=== PATIENT | male | born 1935 | race Two or more races ===

== ENCOUNTER 2022-06-15 06:42 | Day surgery (SDC) | payer MEDICARE ==
[2022-06-15] VITALS (9 sets, daily range): BP systolic 128–165; BP diastolic 57–91
[~2022-06-15] VITALS: Ht 170.2 cm; Wt 104.3 kg
[~2022-06-15 06:42] MED LIST: RIVA20TA PO
[2022-06-15] MEDS ORDERED: HEPARIN SODIUM (PORCINE) 5000 UNITS/ML 1ML VIAL ONE (07:41)
[2022-06-15] MEDS ORDERED: MIDAZOLAM HCL 2MG/2ML 2ml VIAL (1mg/ml) ONE (07:41)
[2022-06-15] MEDS ORDERED: VERAPAMIL 2.5MG/ML INJ 2ML VIAL IV ONE (07:41)
[2022-06-15] MEDS ORDERED: SODIUM CHL 0.9% 0 ML ONE (07:42)
[2022-06-15] MEDS ORDERED: fentaNYL CITRATE 100 MCG/2 ML VL ONE (07:42)
[2022-06-15] MEDS ORDERED: ANGIOMAX 250 MG VIAL IV ONE (07:42)
[2022-06-15] MEDS ORDERED: IODIXANOL 320MG/ML 100ML BTL IV ONE ×3 (07:42→08:28)
[2022-06-15] MEDS ORDERED: OXYB5TAB61 PO (10:15)
[2022-06-15] MEDS ORDERED: POTA1TAB61 PO (10:16)
[2022-06-15] MEDS ORDERED: BUME0.5T4 PO (10:16)
== END 2022-06-15 11:15 | disposition home or self-care (01) ==
LOC: CATH 06:42
PROVIDERS: ATTEND Internal Medicine Cardiovascular Disease
DX: I25.10 Atherosclerotic heart disease of native coronary artery without angina pectoris (principal); R94.39 Abnormal result of other cardiovascular function study; I10 Essential (primary) hypertension; E78.5 Hyperlipidemia, unspecified; E66.9 Obesity, unspecified; R73.03 Prediabetes; Z86.718 Personal history of other venous thrombosis and embolism; Z79.899 Other long term (current) drug therapy
CPT/HCPCS: 76937; 93458; C1769; C1894; J1644; J2250; J3010; J7030; Q9967; 99152

== ENCOUNTER 2022-12-03 06:58 | Inpatient (IN) | payer MEDICARE ==
[~2022-12-03] VITALS: Ht 170.2 cm; Wt 110.0 kg
[2022-12-03] VITALS (10 sets, daily range): BP systolic 133–157; BP diastolic 58–84; PULSE 60–94; RESP 18–24; TEMP 97.8–98.2; O2SAT 92–97
[~2022-12-03 06:58] MED LIST changes: +BUME0.5T4 PO; +LISI10TA34 PO; +OXYB5TAB10 PO; +POTA1TAB61 PO
[2022-12-03] MEDS ORDERED: VANCOMYCIN 1GM/250ML 250 ML IV ONE (07:30)
[2022-12-03] MEDS ORDERED: LIDOCAINE 2%HCL (LOCAL ANESTH.) INJ 20ML MDV ONE (08:23)
[2022-12-03] MEDS ORDERED: IODIXANOL 320MG/ML 100ML BTL IV ONE (08:23)
[2022-12-03] MEDS ORDERED: VANCOMYCIN HCL 1000 MG VL ONE (08:44)
[2022-12-03] MEDS ORDERED: fentaNYL CITRATE 100 MCG/2 ML VL ONE (08:45)
[2022-12-03] MEDS ORDERED: MIDAZOLAM HCL 2MG/2ML 2ml VIAL (1mg/ml) ONE (08:45)
[2022-12-03] MEDS ORDERED: HYDROcodone-ACET 5/325MG TAB PO PRN (18:45)
[2022-12-03] MEDS ORDERED: VANCOMYCIN 1GM/250ML 250 ML IV SCH (22:00)
[2022-12-03] MEDS: DOXYCYCLINE 100 MG TAB/CAP PO SCH (22:09)
[2022-12-03] MEDS: VANCOMYCIN 1GM/250ML 250 ML IV SCH (22:09)
[2022-12-04] VITALS (7 sets, daily range): BP systolic 96–158; BP diastolic 48–69; PULSE 60–93; RESP 14–18; TEMP 98.4–98.5; O2SAT 91–97
[2022-12-04] MEDS ORDERED: LISINOPRIL 10 MG TAB PO SCH (10:00)
[2022-12-04] MEDS: DOXYCYCLINE 100 MG TAB/CAP PO SCH ×2 (10:07→21:58)
[2022-12-04] MEDS: VANCOMYCIN 1GM/250ML 250 ML IV SCH (10:08)
[2022-12-04 12:24] LABS: Alanine Aminotransferase 15 U/L (7-40); Alkaline Phosphatase 69 U/L (46-116); Anion Gap 3 (5-15); Aspartate Aminotransferase 17 U/L (13-40); BUN/Creatinine Ratio 16.3 (10.0-20.0); Blood Urea Nitrogen 15 mg/dL (9-23); Calcium 8.9 mg/dL (8.5-10.1); Carbon Dioxide 33 mmol/L (20-30); Chloride 104 mmol/L (98-107); Glucose 122 mg/dL (74-106); Potassium 4.5 mmol/L (3.5-5.1); Sodium 140 mmol/L (136-145)
[2022-12-04 12:25] LABS: Albumin 3.5 g/dL (3.2-4.8); Bilirubin, Total 0.8 mg/dL (0.2-1.0); Total Protein 6.4 g/dL (5.7-8.2)
[2022-12-04] MEDS ORDERED: DOXY-447 PO (13:25)
[2022-12-04] MEDS ORDERED: BUMETANIDE 2.5mg/10ml (0.25 mg/ml) INJ IV ONE (13:30)
[2022-12-05 05:01] VITALS: BP 96/45; PULSE 82; RESP 18; TEMP 99.6; O2SAT 92
[2022-12-05 08:00] VITALS: PULSE 65; RESP 18; O2SAT 96
== END 2022-12-05 10:30 | disposition home or self-care (01) | DRG 243 ==
LOC: CATH 06:58 → TELE 10:45 → TELE-EAST 13:33
PROVIDERS: ADMIT Specialist; ATTEND Specialist
PROC: 0JH606Z Insertion of Pacemaker, Dual Chamber into Chest Subcutaneous Tissue and Fascia, Open Approach (ICD-10-PCS; principal; 2022-12-03)
PROC: 02H63JZ Insertion of Pacemaker Lead into Right Atrium, Percutaneous Approach (ICD-10-PCS; 2022-12-03)
PROC: 02HK3JZ Insertion of Pacemaker Lead into Right Ventricle, Percutaneous Approach (ICD-10-PCS; 2022-12-03)
PROC: B517YZZ Fluoroscopy of Left Subclavian Vein using Other Contrast (ICD-10-PCS; 2022-12-03)
DX: R00.1 Bradycardia, unspecified (principal); J90 Pleural effusion, not elsewhere classified; I49.5 Sick sinus syndrome; E66.01 Morbid (severe) obesity due to excess calories; I10 Essential (primary) hypertension; E78.5 Hyperlipidemia, unspecified; Z68.38 Body mass index [BMI] 38.0-38.9, adult; Z88.0 Allergy status to penicillin
CPT/HCPCS: 33208; 36415; 71045; 75820; 80053; 83880; 93005; 99152; G0378; J2250; Q9967

== ENCOUNTER 2024-01-15 12:25 | Inpatient (IN) | payer MEDICARE ==
[~2024-01-15] VITALS: Ht 170.2 cm; Wt 102.6 kg
[~2024-01-15 12:25] MED LIST changes: +DOXY1CAP58 PO; -OXYB5TAB10 PO; +OXYB5TAB14 PO; +POTA-215 PO; -POTA1TAB61 PO; -RIVA20TA PO
--- NOTE | 2024-01-15 13:46 | ED.PDOC ---
History of Present Illness HPI Comments 88M presents to the Er w/ no prior Hx associated to the c/c of LLE. Pt reports on his left lower extremity to be swelling and to also be red for the past 3 days. Pt notes that there was no trauma to the extremity. PMHx of High Lipids. SHx of Pacemaker and Cataract Sx. Denies chills, fever, N/V/D, SOB, CP or other associated symptoms, modifiers, or recent injuries at this time. Chief Complaint: Lower Extremity Time Seen by MD: 13:30 Primary Care Provider: ARLEY Reviewed Notes: Nurses Notes, Medications, Allergies Allergies: Coded Allergies: Penicillins (Verified Allergy, Unknown, RASH, 06/11/22) Home Meds Active Scripts Doxycycline (Monohydrate) (Doxycycline) 100 Mg Cap, 100 MG PO BID for 7 Days, #14 CAP Prov:LEVON LECHUGA Rafita GAS REVERSER 12/04/22 Reported Medications Lisinopril (Lisinopril) 10 Mg Tab, 10 MG PO DAILY for htn 12/02/22 Bumetanide (Bumetanide) 0.5 Mg Tab, 2 MG PO DAILY 06/15/22 Potassium Chloride (Klor-Con M10) 10 Meq Tab, 1 TAB PO DAILY 06/15/22 Oxybutynin Chloride (Oxybutynin Chloride) 5 Mg Tab, 5 MG PO DAILY 06/15/22 Information Source: Patient Mode of Arrival: Wheelchair Severity: Moderate Timing: Days Duration: Since onset, Days Prehospital treatment: None Past Medical History PAST MEDICAL HISTORY: High Lipids Surgical History: Pacemaker (A-FIB) Surgical History (Other): cataract Sx Family History Family History: Reviewed,noncontributory to illness, Unknown Social History Smoker: Non-Smoker Alcohol: Denies ETOH Use Drugs: Denies Drug Use Lives In: Home Constitutional: reports: others (redness and swelling on extremity); denies: chills, diaphoresis, fatigue, fever, malaise, sweats, weakness EENTM: denies: blurred vision, double vision, ear bleeding, ear discharge, ear drainage, ear pain, ear ringing, eye pain, eye redness, hearing loss, mouth pain, mouth swelling, nasal discharge, nose bleeding, nose congestion, nose pain, photophobia, tearing, throat pain, throat swelling, voice changes, others Respiratory: denies: cough, hemoptysis, orthopnea, SOB at rest, shortness of breath, SOB with excertion, stridor, wheezing, others Cardiovascular: denies: chest pain, dizzy spells, diaphoresis, Dyspnea on exertion, edema, irregular heart beat, left arm pain, lightheadedness, palpitations, PND, syncope, others Gastrointestinal: denies: abdomen distended, abdominal pain, blood streaked bowels, constipated, diarrhea, dysphagia, difficulty swallowing, hematemesis, melena, nausea, poor appetite, poor fluid intake, rectal bleeding, rectal pain, vomiting, others Genitourinary: denies: burning, dysuria, flank pain, frequency, hematuria, incontinence, penile discharge, penile sore, pain, testicle pain, testicle swelling, urgency, others Neurological: denies: dizziness, fainting, headache, left sided numbness, left sided weakness, numbness, paresthesia, pre-existing deficit, right sided numbness, right sided weakness, seizure, speech problems, tingling, tremors, weakness, others Musculoskeletal: denies: back pain, gout, joint pain, joint swelling, muscle pa in, muscle stiffness, neck pain, others Integumetry: denies: bruises, change in color, change in hair/nails, dryness, laceration, lesions, lumps, rash, wounds, others Allergic/Immunocompromised: denies: Difficulty Healing, Frequent Infections, Hives, Itching, others Hematologic/Lymphatic: denies: anemia, blood clots, easy bleeding, easy bruising, swollen glands, others Endocrine: denies: excessive hunger, excessive sweating, excessive thirst, excessive urination, flushing, intolerance to cold, intolerance to heat, unexplained weight gain, unexplained weight loss, others Psychiatric: denies: anxiety, bipolar disorder, depression, hopeless, panic disorder, schizophrenia, sleepless, suicidal, others All Other Systems: Reviewed and Negative Physical Exam General Appearance: Moderate Distress, Obese HEENT: Normal ENT Inspection, Pharynx Normal, TMs Normal Neck: Full Range of Motion, Non-Tender, Normal, Normal Inspection Respiratory: Chest Non-Tender, Lungs Clear, No Accessory Muscle Use, No Respiratory Distress, Normal Breath Sounds Cardiovascular: No Edema, No JVD, No Murmur, No Gallop, Normal Peripheral Pulses, Regular Rate/Rhythm Breast Exam: Deferred Gastrointestinal: No Organomegaly, Non Tender, No Pulsatile Mass, Normal Bowel Sounds, Soft Genitalia: Deferred Pelvic: Deferred Rectal: Deferred Extremities: No calf tenderness, Normal capillary refill, No pedal edema Musculoskeletal : Apperance: Normal Neurologic: Alert, outdoor adventure leader II-XII nml as Tested, No Motor Deficits, Normal Affect, Normal Mood, No Sensory Deficits Cerebellar Function: Normal Reflexes: Normal Skin: Dry, Rash (Redness to the left lower extremity with a nonhealing ulcer to the lateral aspect of the left tib-fib), Warm Lymphatic: No Adenopathy Was a procedure done? Was a procedure done?: No Differential Dx Considerations may include: Cellulitis, osteomyelitis, generalized weakness X-Ray, Labs, Meds, VS Vital Signs Date Time Temp Pulse Resp B/P (MAP) Pulse Ox O2 Delivery O2 Flow Rate FiO2 01/15/24 15:19 99.7 80 125/58 (80) 94 99.7 01/15/24 14:32 96 18 97 Room Air* 0 21 01/15/24 14:15 98.8 69 18 120/44 (69) 97 98.8 01/15/24 13:15 99.7 80 17 125/58 (80) 93 Lab Test 01/15/24 14:02 01/15/24 13:16 Range/Units White Blood Count 12.5 H 4.4-10.8 10^3/uL Red Blood Count 4.05 L 4.5-5.90 10^6/uL Hemoglobin 13.1 L 13.5-17.5 g/dL Hematocrit 38.9 L 41.0-53.0 % Mean Corpuscular Volume 96.0 80.0-100.0 fL Mean Corpuscular Hemoglobin 32.2 H 28.0-32.0 pg Mean Corpuscular Hemoglobin Concent 33.6 32.0-36.0 g/dL Red Cell Distribution Width 13.8 11.8-14.3 % Platelet Count 216 140-450 10^3/uL Mean Platelet Volume 8.7 6.9-10.8 fL Neutrophils (%) (Auto) 76.2 37.0-80.0 % Lymphocytes (%) (Auto) 10.7 10.0-50.0 % Monocytes (%) (Auto) 12.0 0.0-12.0 % Eosinophils (%) (Auto) 0.8 0.0-7.0 % Basophils (%) (Auto) 0.3 0.0-2.0 % Neutrophils # (Auto) 9.5 H 1.6-8.6 10 ^3/uL Lymphocytes # (Auto) 1.3 0.4-5.4 10 ^3/uL Monocytes # (Auto) 1.5 H 0-1.3 10 ^3/uL Eosinophils # (Auto) 0.1 0-0.8 10 ^3/uL Basophils # (Auto) 0 0-0.2 10 ^3/uL Nucleated Red Blood Cells 0.0 % Erythrocyte Sedimentation Rate 72 H 0-20 mm/hr Sodium Level 138 136-145 mmol/L Potassium Level 4.7 3.5-5.1 mmol/L Chloride Level 102 98-107 mmol/L Carbon Dioxide Level 31 20-31 mmol/L Anion Gap 5 5-15 Blood Urea Nitrogen 24 H 9-23 mg/dL Creatinine 1.16 0.700-1.30 mg/dL Glomerular Filtration Rate Calc 60 >90 mL/min BUN/Creatinine Ratio 20.7 H 10.0-20.0 Serum Glucose 118 H 74-106 mg/dL Calcium Level 9.3 8.7-10.4 mg/dL POC Glucose 110 H 70-106 mg/dl Current Medications Medications (Trade) Dose Ordered Sig/Alonzo Route Start Time Stop Time Status Last Admin Clindamycin Phosphate 50 ml @ 50 mls/hr ONCE ONCE IV 01/15/24 13:45 01/15/24 14:44 DC 01/15/24 14:30 CT scan of the left lower extremity shows:IMPRESSION: 1. Moderate to marked subcutaneous edema throughout the left lower leg, may be seen with cellulitis in the appropriate clinical setting. No organized fluid collection to suggest abscess. 2. No bony destructive changes are seen to suggest osteomyelitis. Correlate with clinical findings At this time, the patient was given clindamycin IV piggyback The CBC shows an elevated white blood cell count of 12.5 The rest of the CBC is within normal limits The chemistry panel is within normal limits At this time, the patient will be admitted to the facility Images Reviewed?: Images reviewed and evaluated by me Time of 1ST Reevaluation: 14:00 Reevaluation 1ST: Unchanged Patient Education/Counseling: Diagnosis, Treatment, Prognosis Family Education/Counseling: No Family Present Departure 1 Departure Time of Disposition: 16:29 Impression: Primary Impression: Left leg cellulitis Additional Impression: Nonhealing ulcer of left lower extremity Qualified Codes: L97.929 - Non-pressure chronic ulcer of unspecified part of left lower leg with unspecified severity Disposition: ADMITTED INPATIENT Admit to: Med Surg Condition: Fair Critical Care Note Critical Care Time?: No Stability Stability form required: Yes Unstable for transfer: ED Physician Assesment (Clinical assesment) Heart Score Heart Score: Heart Score Response (Comments) Value History N/A 0 EKG N/A 0 Age N/A 0 Risk Factors N/A 0 Troponin N/A 0 Total 0 I personally scribed for SONU BEAUCHAMP MD ([email or web address]) on 01/15/24 at 13:46. Electronically submitted by Tayo Logan ([email or web address]). SONU BEAUCHAMP MD Jan 15, 2024 13:46
[2024-01-15 14:13] LABS: Basophils # (auto) 0 10 ^3/uL (0-0.2); Basophils % (auto) 0.3 % (0.0-2.0); Eosinophils # (auto) 0.1 10 ^3/uL (0-0.8); Eosinophils % (auto) 0.8 % (0.0-7.0); Hematocrit 38.9 % (41.0-53.0); Hemoglobin 13.1 g/dL (13.5-17.5); Lymphocytes # (auto) 1.3 10 ^3/uL (0.4-5.4); Lymphocytes % (auto) 10.7 % (10.0-50.0); Mean Corpuscular Hemoglobin 32.2 pg (28.0-32.0); Mean Corpuscular Hgb Conc. 33.6 g/dL (32.0-36.0); Monocytes # (auto) 1.5 10 ^3/uL (0-1.3); Neutrophils # (auto) 9.5 10 ^3/uL (1.6-8.6); Neutrophils % (auto) 76.2 % (37.0-80.0); Platelet Count (auto) 216 10^3/uL (140-450); Red Blood Cells 4.05 10^6/uL (4.5-5.90); Red Cell Distribution Width 13.8 % (11.8-14.3); White Blood Cell 12.5 10^3/uL (4.4-10.8)
[2024-01-15 14:23] LABS: Chloride 102 mmol/L (98-107); Potassium 4.7 mmol/L (3.5-5.1); Sodium 138 mmol/L (136-145)
[2024-01-15 14:24] LABS: Anion Gap 5 (5-15); Carbon Dioxide 31 mmol/L (20-31)
[2024-01-15 14:25] LABS: Calcium 9.3 mg/dL (8.7-10.4)
--- NOTE | 2024-01-15 14:28 | DVH ---
CLINICAL INFORMATION: 88 years old, Male; infection. TECHNIQUE: Axial CT images of the left lower leg were obtained without IV contrast. Coronal and sagit william reformatted images were obtained, reviewed, and stored. All CT scans at this medical facility are performed using dose modulation techniques as appropriate to a performed exam including the follo wing: Automated exposure control was utilized; adjustment of the MA and/or KV according to patient si ze; and use of iterative reconstruction technique. CTDIvol = 25.2 mGy DLP = 1544.88 mGy-cm COMPARISON: None FINDINGS: Moderate to marked subcutaneous edema throughout the left lower leg, as well as involving t he ankle and foot, may be due to cellulitis in the appropriate clinical setting. No organized fluid c ollection identified to suggest abscess. There are focal fatty areas in the soleus and gluteal muscul ature, likely due to areas of fatty atrophy. Dense arterial calcification noted. No areas of cortical destruction or erosive changes are seen in the tibia or fibula or the rest of the visualized adjacen t osseous structures. No suspicious periosteal reaction. IMPRESSION: 1. Moderate to marked subcutaneous edema throughout the left lower leg, may be seen with cellulitis i n the appropriate clinical setting. No organized fluid collection to suggest abscess. 2. No bony destructive changes are seen to suggest osteomyelitis. Correlate with clinical findings
[2024-01-15 14:29] LABS: BUN/Creatinine Ratio 20.7 (10.0-20.0); Blood Urea Nitrogen 24 mg/dL (9-23); Glucose 118 mg/dL (74-106)
[2024-01-15] MEDS: CLINDAMYCIN 600MG IV 50 ML IV ONE (14:30)
[2024-01-15 14:32] VITALS: PULSE 96; RESP 18; O2SAT 97
[2024-01-15 14:46] LABS: Erythrocyte Sedimentation Rate 72 mm/hr (0-20)
[2024-01-15 15:19] VITALS: BP 125/58; PULSE 80; TEMP 99.7; O2SAT 94
[2024-01-15] MEDS: ONDANSETRON HCL 4 MG/2 ML VIAL IV ONE (16:47)
[2024-01-15] MEDS: MORPHINE SULFATE 4 MG/ML SYR/VIAL IV ONE (16:48)
[2024-01-15 20:00] VITALS: PULSE 81; O2SAT 91
--- NOTE | 2024-01-15 21:14 | DVHHP2 ---
Admitting Diagnosis: Subjective: Mr. Maris Stone is an 88-year-old gentleman with a significant past medical history of atrial fibrillation, persistent status post pacemaker, and hyperlipidemia. He presents to the hospital with a chief complaint of left lower extremity leg swelling and redness, which he has been experiencing for the past 3 days. The patient denies any recent trauma to the affected extremity. In addition to the leg swelling and redness, Mr. Stone reports having a fever, chills, nausea, vomiting, diarrhea, shortness of breath, and chest pain. He has a history of pacemaker implantation and cataract surgery. The patient's symptoms began 3 days ago, and he is now being admitted to the hospital for further evaluation and treatment of suspected left lower extremity cellulitis. History of Present Illness Home Meds Active Scripts Doxycycline (Monohydrate) (Doxycycline) 100 Mg Cap, 100 MG PO BID for 7 Days, #14 CAP Prov:ALEXANDREALEVON M CLOCK MECHANIC 12/04/22 Reported Medications Lisinopril (Lisinopril) 10 Mg Tab, 10 MG PO DAILY for htn 12/02/22 Bumetanide (Bumetanide) 0.5 Mg Tab, 2 MG PO DAILY 06/15/22 Potassium Chloride (Klor-Con M10) 10 Meq Tab, 1 TAB PO DAILY 06/15/22 Oxybutynin Chloride (Oxybutynin Chloride) 5 Mg Tab, 5 MG PO DAILY 06/15/22 Past Medical History Cardiac: AFIB Pulmonary: No pertinent Hx Central Nervous System: No pertinent Hx GI: No pertinent Hx Hemotology/Oncology: No pertinent Hx Hepatobiliary: No pertinent Hx Psychiatric: No pertinent Hx Musculoskeletal: No pertinent Hx Rheumotologic: No pertinent Hx Infectious Disease: No peritnent Hx ENT: No pertinent Hx Renal/: No pertinent Hx Endocrine: No pertinent Hx Dermatology: No pertinent Hx Patient Family History: Patient reports no known family medical history. Review of Systems Constitutional: No symptom reported Ears, Nose, & Throat: No symptom reported Eyes: No symptom reported Pulmonary/Respiratory: No symptom reported Cardiovascular: No symptom reported Gastrointestinal: No symptom reported Genitourinary: No symptom reported Musculoskeletal: No symptom reported Skin: No symptom reported Psychiatric: No symptom reported Endocrine: No symptom reported Hemotologic/Lymphatic: No symptom reported H&P Exam Vital Signs Vital Signs Date Time Temp Pulse Resp B/P (MAP) Pulse Ox O2 Delivery O2 Flow Rate FiO2 01/15/24 20:00 81 91 Nasal Cannula* 2 28 01/15/24 18:12 18 129/50 (76) 01/15/24 15:19 99.7 99.7 General Appeara: Well developed, Well nourished, Normal Appearance Head Exam: Normal inspection Neck Exam: Normal inspection, Non-tender, Normal alignment Eye Exam: bilateral eye Normal inspection, bilateral eye PERRL, bilateral eye E FELICIANO Ear Exam: bilateral ear Auricle normal, bilateral ear Canal normal, bilateral ear TM normal Nasal Exam: Normal inspection Mouth: Normal Inspection Pulmonary/Respiratory: Normal inspection, Normal breath sounds, Chest non- tender, Lungs clear Cardiovascular/Chest: Normal inspection, Regular rate, Normal Rhythm Abdominal Exam: Normal bowel sounds, Soft, No tenderness, No hepatospenomegaly, No masses Rectal Exam: Normal inspection Back Exam: Normal inspection Pelvic Exam: External exam normal, Bimanual exam normal, Speculum exam normal Male Genital Exam: Normal genitalia, Normal prostate Shoulder Exam: Normal inspection, Non-tender, Normal ROM Elbow/Forearm Exam: Normal inspection, Non-tender, Normal ROM Wrist Exam: Normal inspection, Non-tender, Normal ROM Hand Exam: Normal inspection, Non-tender, Normal ROM Hip exam: Normal inspection, Non-tender, Normal range of motion Legs: bilateral leg non-tender, bilateral leg normal inspection, bilateral leg normal range of motion, bilateral leg no evidence of injury Knees: bilateral knee non-tender, bilateral knee normal inspection, bilateral knee normal range of motion, bilateral knee no evidence of injury Ankle Exam: bilateral ankle Normal inspection, bilateral ankle Non-tender, bilateral ankle Normal range of motion, bilateral ankle No evidence of injury Foot: bilateral foot non-tender, bilateral foot normal inspection, bilateral foot normal range of motion, bilateral foot no evidence of injury Tendon/ Neuro: Normal sensation, Normal motor function, Normal tendon functions STATISTICAL REPORTING ANALYST Exam: Normal hearing, Normal speech, PERRL Motor/Sensory: Normal sensory function, Normal motor function, Negative Babinski's sign Deep Tendon Ref: All intact Neuro/Mental St: Alert, Oriented Appearance: Appropriate appearance, Appropriate insight Eye contact/ Speech: Cooperative, Good eye contact, Normal speech Coordination/Gait: Normal finger->nose, Normal gait, Negative Romberg's sign Skin Exam: Normal inspection, Normal color, Warm/dry Lymphatic: Normal inspection Labs/Xrays Labs Test 01/15/24 14:02 01/15/24 13:16 Range/Units White Blood Count 12.5 H 4.4-10.8 10^3/uL Red Blood Count 4.05 L 4.5-5.90 10^6/uL Hemoglobin 13.1 L 13.5-17.5 g/dL Hematocrit 38.9 L 41.0-53.0 % Mean Corpuscular Volume 96.0 80.0-100.0 fL Mean Corpuscular Hemoglobin 32.2 H 28.0-32.0 pg Mean Corpuscular Hemoglobin Concent 33.6 32.0-36.0 g/dL Red Cell Distribution Width 13.8 11.8-14.3 % Platelet Count 216 140-450 10^3/uL Mean Platelet Volume 8.7 6.9-10.8 fL Neutrophils (%) (Auto) 76.2 37.0-80.0 % Lymphocytes (%) (Auto) 10.7 10.0-50.0 % Monocytes (%) (Auto) 12.0 0.0-12.0 % Eosinophils (%) (Auto) 0.8 0.0-7.0 % Basophils (%) (Auto) 0.3 0.0-2.0 % Neutrophils # (Auto) 9.5 H 1.6-8.6 10 ^3/uL Lymphocytes # (Auto) 1.3 0.4-5.4 10 ^3/uL Monocytes # (Auto) 1.5 H 0-1.3 10 ^3/uL Eosinophils # (Auto) 0.1 0-0.8 10 ^3/uL Basophils # (Auto) 0 0-0.2 10 ^3/uL Nucleated Red Blood Cells 0.0 % Erythrocyte Sedimentation Rate 72 H 0-20 mm/hr Sodium Level 138 136-145 mmol/L Potassium Level 4.7 3.5-5.1 mmol/L Chloride Level 102 98-107 mmol/L Carbon Dioxide Level 31 20-31 mmol/L Anion Gap 5 5-15 Blood Urea Nitrogen 24 H 9-23 mg/dL Creatinine 1.16 0.700-1.30 mg/dL Glomerular Filtration Rate Calc 60 >90 mL/min BUN/Creatinine Ratio 20.7 H 10.0-20.0 Serum Glucose 118 H 74-106 mg/dL Calcium Level 9.3 8.7-10.4 mg/dL POC Glucose 110 H 70-106 mg/dl Assessment/Plan Plan Objective: - Vital Signs: - Temperature: 99.7F - Pulse: 80 bpm, second reading 94 bpm - Respiratory rate: 18 breaths per minute - Blood pressure: 125/58 mmHg - Physical Examination: - General: Moderate distress, obese - Lower extremity: Redness and swelling of the left lower extremity - HENT: Within normal limits - Cardiovascular: Regular rhythm - No other abnormalities noted in the transcript - Diagnostic Test Results and Labs: - N/A Assessment & Plan: Assessment and Plan: 1. Left leg cellulitis: - Admit the patient to the telemetry unit for monitoring. - Initiate IV antibiotics for infection management. - Monitor WBC count and ESR levels to assess response to treatment. 2. Non-healing ulcer of left lower extremity: - Continue IV antibiotics as part of cellulitis management. - Consult nuclear weapons mechanical specialist for further evaluation and management. 3. Atrial fibrillation with pacemaker: - Admit the patient to telemetry for continuous cardiac monitoring. - Ensure the patient is on appropriate anticoagulation therapy. - Schedule follow-up with a hot kettle tender for pacemaker evaluation and management. 4. Heart failure: - Continue current heart failure medications. - Monitor fluid balance and adjust diuretics as needed. - Educate the patient on the importance of medication adherence, diet, and exercise. 5. Obesity: - Encourage the patient to follow a healthy diet and engage in regular physical activity. - Provide resources for weight management and consider referral to a set and exhibit designer. 6. Leukocytosis: - Monitor WBC count during the course of IV antibiotic treatment for cellulitis. - Reassess if there is no improvement or worsening of leukocytosis. 7. Elevated ESR: - Monitor ESR levels during the course of IV antibiotic treatment for cellulitis. - Reassess if there is no improvement or worsening of ESR levels. Prognosis: Guarded. Regular follow-up and monitoring of the patient's condition are essential to ensure appropriate management and prevent complications. Plan discussed with: Patient LOY YORK MD Jan 15, 2024 21:14
[2024-01-15] MEDS ORDERED: NITROGLYCERIN 0.4 MG SL TAB SL PRN (21:15)
[2024-01-15] MEDS ORDERED: MORPHINE SULFATE INJ 2 MG/ml SYRG IV PRN ×2 (21:15)
[2024-01-15] MEDS ORDERED: ONDANSETRON HCL 4 MG/2 ML VIAL IV PRN (21:15)
[2024-01-15 22:00] VITALS: BP 101/46; PULSE 91; TEMP 98.2; O2SAT 92
[2024-01-15] MEDS: ASCORBIC ACID 500 MG TAB PO SCH (22:28)
[2024-01-15 23:20] VITALS: BP 126/61; PULSE 76; PULSE 86; RESP 18; TEMP 99.1; O2SAT 93; O2SAT 94
[2024-01-15] MEDS ORDERED: FURO20TA3 PO (23:33)
[2024-01-16] VITALS (9 sets, daily range): BP systolic 87–107; BP diastolic 38–69; PULSE 63–80; RESP 17–20; TEMP 98.4–100.1; O2SAT 93–98
[2024-01-16] MEDS: ACETAMINOPHEN 325 MG TAB PO PRN (00:39)
[2024-01-16 06:57] LABS: Alanine Aminotransferase 12 U/L (7-40); Alkaline Phosphatase 66 U/L (46-116); Anion Gap 7 (5-15); BUN/Creatinine Ratio 19.7 (10.0-20.0); Blood Urea Nitrogen 25 mg/dL (9-23); Calcium 8.7 mg/dL (8.7-10.4); Carbon Dioxide 27 mmol/L (20-31); Chloride 102 mmol/L (98-107); Glucose 109 mg/dL (74-106); Potassium 4.4 mmol/L (3.5-5.1); Sodium 136 mmol/L (136-145)
[2024-01-16 06:59] LABS: Albumin 3.3 g/dL (3.2-4.8); Aspartate Aminotransferase 15 U/L (13-40); Bilirubin, Total 0.6 mg/dL (0.2-1.0); Total Protein 6.2 g/dL (5.7-8.2)
--- NOTE | 2024-01-16 07:58 | DVHPN2 ---
Progress Note - Dictate Date Seen: Jan 16, 2024 Medical Necessity Reason Pt with a Central, PICC or Fol: No vital signs Vital Sign Date Time Temp Pulse Resp B/P (MAP) Pulse Ox O2 Delivery O2 Flow Rate FiO2 01/16/24 06:38 98.9 78 102/56 (71) 94 98.9 01/15/24 23:20 18 Nasal Cannula* 3 32 Total Intake and Output 01/15/24 01/15/24 01/16/24 15:00 23:00 07:00 Intake Total 800 ml Balance 800 ml medications Current Medications Medications Dose Ordered Sig/Alonzo Route Start Time Stop Time Status Last Admin Dose Admin Acetaminophen 325 mg Q4HP PRN PO 01/15/24 21:15 01/16/24 00:39 325 MG Acetaminophen/ Hydrocodone Bitart 1 tab Q4HP PRN PO 01/15/24 21:15 Ondansetron HCl 4 mg Q4HP PRN IV 01/15/24 21:15 Enoxaparin Sodium 40 mg DAILY SC 01/16/24 10:00 Zinc Sulfate 220 mg DAILY PO 01/16/24 10:00 Ascorbic Acid 500 mg BID PO 01/15/24 22:00 01/15/24 22:28 500 MG Multivitamins 1 tab DAILY PO 01/16/24 10:00 Morphine Sulfate 2 mg Q4HPRN PRN IV 01/15/24 21:15 Nitroglycerin 0.4 mg Q5MINP PRN SL 01/15/24 21:15 Morphine Sulfate 2 mg Q30M PRN IV 01/15/24 21:15 objective General Appearance: alert, no distress HEENT: EOMI, PERRLA, normal external inspect of ears, no icterus, no nasal drainage Neck: no carotid bruit, no jugular venous distention (JVD), no lymphadenopathy Chest: normal thorax Respiratory: clear to auscultation, normal air movement Cardiovascular: regular rate and rhythm, no diastolic murmur, no jugular venous distention (JVD), no rub, no systolic murmur Abdominal: soft, no hepatomegaly, no mass, no splenomegaly, no tenderness Genitourinary: grossly normal external Musculoskeletal: no joint tenderness, no swelling Extremities: normal pulses, no calf tenderness, no clubbing, no cyanosis, no edema Skin: no bruising, no jaundice, no rash Neurological: alert, No focal deficit laboratory and microbiology Laboratory Tests 01/16/24 05:09 Test 01/16/24 05:09 Range/Units Serum Glucose 109 H 74-106 mg/dL Problem List 1. Left leg cellulitis Monitor, daily labs 2. Chronic anticoagulation (with Xarelto) Monitor, resume home Xarelto 3. Persistent Atrial fibrillation Monitor EKG, cardiology consult 4. Obesity Monitor, PPI 5. S/p pacemaker Biotronik Monitor, cardiology consult 6. 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 Objective Patient was admitted for cellulitis to left lower extremity. Patient's leg is red and swollen to touch. Ultrasound of.venous Doppler to lower extremities negative for DVT. Patient does have a history of a DVT to the left lower extremity. Patient was taking Xarelto outpatient for chronic anticoagulation. Patient was seen by cardiology. Plan Continue current treatment. Continue IV antibiotics with doxycycline. Cardiology recommendations appreciated. Plan discussed with: Patient, Other LEVON LECHUGA NP Jan 16, 2024 07:58
--- NOTE | 2024-01-16 09:53 | DVHINCON2 ---
Date of service: Jan 16, 2024 History of Present Illness HPI Patient is a 88-year-old gentleman who presented with left lower extremity redness and swelling. Cardiology is involved for cardiac aspects of care. Patient is known to our practice from outside on before. Does have history of old DVT on the left lower extremity and is usually on Xarelto as outpatient. Has been diagnosed with persistent AFib and is kept on Xarelto. Does have a Biotronik pacemaker which was interrogated in the office around 1 month ago. Denies chest pains/shortness of breath/palpitations/loss of consciousness. 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 Patient Family History: Patient reports no known family medical history. Smoker: No Hx (Negative) Alocohol: None Drugs: None Lives with: With family Review of Systems All Other Systems 14 point review of system was performed. Relevant findings as per above and as per HPI. Otherwise negative. H&P Exam Vital Signs Vital Signs Date Time Temp Pulse Resp B/P (MAP) Pulse Ox O2 Delivery O2 Flow Rate FiO2 01/16/24 08:00 18 98 Nasal Cannula* 2 28 01/16/24 06:38 98.9 78 102/56 (71) 98.9 General Appeara: Well developed, Obese Head Exam: Normal inspection Eye Exam: bilateral eye PERRL Mouth: Normal Inspection Pulmonary/Respiratory: Lungs clear Cardiovascular/Chest: Regular rate, Systolic murmur Peripheral Pulses: 2+ carotid (R), 2+ carotid (L), 2+ femoral (R), 2+ femoral (L), 2+ dorsalis pedis (R), 2+ dorsalis pedis (L) Abdominal Exam: Normal bowel sounds, Soft Neuro/Mental St: Alert, Oriented Appearance: Appropriate appearance Eye contact/ Speech: Cooperative Labs/Xrays Labs Test 01/16/24 05:09 01/15/24 14:02 01/15/24 13:16 Range/Units Sodium Level 136 136-145 mmol/L Potassium Level 4.4 3.5-5.1 mmol/L Chloride Level 102 98-107 mmol/L Carbon Dioxide Level 27 20-31 mmol/L Anion Gap 7 5-15 Blood Urea Nitrogen 25 H 9-23 mg/dL Creatinine 1.27 0.700-1.30 mg/dL Glomerular Filtration Rate Calc 54 >90 mL/min BUN/Creatinine Ratio 19.7 10.0-20.0 Serum Glucose 109 H 74-106 mg/dL Calcium Level 8.7 8.7-10.4 mg/dL Total Bilirubin 0.6 0.2-1.0 mg/dL Aspartate Amino Transferase (AST) 15 13-40 U/L Alanine Aminotransferase (ALT) 12 7-40 U/L Alkaline Phosphatase 66 46-116 U/L Total Protein 6.2 5.7-8.2 g/dL Albumin 3.3 3.2-4.8 g/dL Eosinophils (%) (Auto) 0.8 0.0-7.0 % Eosinophils # (Auto) 0.1 0-0.8 10 ^3/uL Basophils # (Auto) 0 0-0.2 10 ^3/uL Nucleated Red Blood Cells 0.0 % Erythrocyte Sedimentation Rate 72 H 0-20 mm/hr POC Glucose 110 H 70-106 mg/dl Assessment/Plan Plan Patient is a 88-year-old gentleman who presented with left lower extremity redness and swelling. Cardiology is involved for cardiac aspects of care. Patient is known to our practice from outside on before. Does have history of old DVT on the left lower extremity and is usually on Xarelto as outpatient. Has been diagnosed with persistent AFib and is kept on Xarelto. Does have a Biotronik pacemaker which was interrogated in the office around 1 month ago. Denies chest pains/shortness of breath/palpitations/loss of consciousness. Not in acute distress. Lying flat in the bed. No JVD. Mucosa is pink and wet. No carotid bruit. Lungs are clear to auscultation. Not using accessory muscles of breathing. Cardiac: Regular, no thrill/gallop. Abdomen is soft. Bowel sound is positive. There is no gross mass/hepatomegaly. Extremities reveal 2+ edema in the right side and 3+ in the left side. Dorsalis pedis is 1+ bilateral. 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 Echocardiogram of May 2023 (performed in the office) had revealed preserved left ventricular systolic function, dilated aortic root, biatrial enlargement and no specific valvular disease Left heart catheterization of May 2022 had reported nonobstructive coronary artery disease, LVEF of 60% and LVEDP of 18 mm Hg WBC: 12.5 Hemoglobin: 13.1 ESR: 72 Creatinine: 1.16 - 1.27 Potassium: 4.7 - 4.4 CT of the left lower extremities reported: 1. Moderate to marked subcutaneous edema throughout the left lower leg, may be seen with cellulitis in the appropriate clinical setting. No organized fluid collection to suggest abscess. 2. No bony destructive changes are seen to suggest osteomyelitis. Correlate with clinical findings Telemetry reveals atrial fibrillation with moderate ventricular response Patient is a 88-year-old gentleman who presented with left lower extremities redness and swelling. Does have history of DVT on the same leg. Presentation questions cellulitis. Does have history of atrial fibrillation also. Is on Xarelto as outpatient. Cellulitis of left lower extremities Sepsis Chronic DVT of left lower extremities Atrial fibrillation Status post pacemaker (Biotronik) implantation for tachy-wilton syndrome History of obesity Old history of aortic aneurysm Cardiac suggestion for management: Manage on telemetry Follow-up electrolytes and kidney function tests and correct abnormalities. Keep potassium above 4 and magnesium above 2 EKG Echocardiogram Chest x-ray D-dimer Request for venous Doppler of lower extremities Antibiotics as per primary team Continue long-term anticoagulation (Xarelto) Further evaluation and management depends on the above and clinical course Thank you for consultation A total of 75 minutes was spent reviewing the patient record, examining the patient, making a diagnostic and therapeutic plan, discussing this plan with medical personnel, following up on diagnostic studies and following the patient for clinical stability excluding any and all procedures. At least 50% of this time was spent in direct, [id number] contact. Thank you for allowing me to participate in this patient's care. Further recommendations will depend on patient's clinical course. Please do not hesitate to contact me if you have any questions or concerns. This medical document was created using electronic medical record system with [email or web address] computerized dictation system. Although this document has been carefully reviewed, there may still be some phonetic and typographical errors. These areas are purely typographical due to the imperfection of the software programs, and do not reflect any compromise in the patient's medical care. Plan discussed with: Patient, Other (Nurse) MARY LEACH MD Jan 16, 2024 09:53
--- NOTE | 2024-01-16 10:06 | DVH ---
Bilateral lower extremity venous duplex Clinical History: EDEMA Comparison: None Technique: Duplex Doppler evaluation of the deep venous systems of both lower extremities from the common femora l veins to the popliteal veins including color Doppler and spectral/pulsed waveform analysis was perf ormed. Findings: RIGHT SIDE: The common femoral vein demonstrates appropriate compressibility and waveform variability. There is compressibility/patency of the great saphenous vein at the proximal thigh. The femoral vein demonstrates appropriate compressibility and waveform variability. The deep femoral vein demonstrates appropriate compressibility and waveform variability. The popliteal vein demonstrates appropriate compressibility and waveform variability. LEFT SIDE: The common femoral vein demonstrates appropriate compressibility and waveform variability. There is compressibility/patency of the great saphenous vein at the proximal thigh. The femoral vein demonstrates appropriate compressibility and waveform variability. The deep femoral vein demonstrates appropriate compressibility and waveform variability. The popliteal vein demonstrates appropriate compressibility and waveform variability. Impression: 1. No right or left femoropopliteal venous thrombosis.
[2024-01-16] MEDS: ENOXAPARIN SOD 40 MG/0.4 ML SYRINGE SC SCH (10:14)
[2024-01-16] MEDS: MULTIPLE VITAMIN TAB PO SCH (10:14)
[2024-01-16] MEDS: ZINC SULFATE 220mg CAP or TAB PO SCH (10:14)
[2024-01-16 10:49] LABS: Basophils # (auto) 0 10 ^3/uL (0-0.2); Basophils % (auto) 0.4 % (0.0-2.0); Eosinophils # (auto) 0.1 10 ^3/uL (0-0.8); Hematocrit 35.4 % (41.0-53.0); Hemoglobin 11.8 g/dL (13.5-17.5); Lymphocytes # (auto) 0.7 10 ^3/uL (0.4-5.4); Lymphocytes % (auto) 6.2 % (10.0-50.0); Mean Corpuscular Hemoglobin 31.9 pg (28.0-32.0); Mean Corpuscular Hgb Conc. 33.2 g/dL (32.0-36.0); Mean Corpuscular Volume 95.9 fL (80.0-100.0); Monocytes # (auto) 1.3 10 ^3/uL (0-1.3); Monocytes % (auto) 11.9 % (0.0-12.0); Neutrophils # (auto) 8.9 10 ^3/uL (1.6-8.6); Neutrophils % (auto) 80.5 % (37.0-80.0); Nucleated Red Blood Cells % 0.1 %; Platelet Count (auto) 191 10^3/uL (140-450); Red Blood Cells 3.69 10^6/uL (4.5-5.90); Red Cell Distribution Width 13.8 % (11.8-14.3)
--- NOTE | 2024-01-16 12:26 | DVH ---
CHEST RADIOGRAPH Indication: SOB Technique: Single frontal view of the chest was obtained COMPARISON: XY CHEST XRAY 1 VIEW on DOS: 12/04/22, XY CHEST PORTABLE on DOS: 12/03/22 FINDINGS: Lines and Tubes: Left chest wall pacemaker Lungs: Low lung volumes. Patchy left lung airspace disease. Pleura: No effusion. No pneumothorax. Cardiomediastinal contours: Unremarkable Bones: Unremarkable IMPRESSION: Patchy left lung airspace opacities.
[2024-01-16] MEDS: DOXYCYCLINE 100MG/250ML 250 ML IV SCH (15:21)
[2024-01-16] MEDS: RIVAROXABAN 15 MG TAB PO SCH (17:41)
[2024-01-17] VITALS (9 sets, daily range): BP systolic 93–122; BP diastolic 52–58; PULSE 64–72; RESP 18–20; TEMP 97.4–99.4; O2SAT 91–98
[2024-01-17] MEDS: PANTOPRAZOLE 40 MG TAB PO SCH (06:09)
--- NOTE | 2024-01-17 08:44 | DVHPN2 ---
Progress Note - Dictate Date Seen: Jan 17, 2024 Medical Necessity Reason Pt with a Central, PICC or Fol: No vital signs Vital Sign Date Time Temp Pulse Resp B/P (MAP) Pulse Ox O2 Delivery O2 Flow Rate FiO2 01/17/24 07:59 18 98 Nasal Cannula* 2 28 01/17/24 05:00 97.8 64 94/53 (67) 97.8 Total Intake and Output 01/16/24 01/16/24 01/17/24 15:00 23:00 07:00 Intake Total 700 ml 1150 ml Output Total 350 ml Balance 700 ml 800 ml medications Current Medications Medications Dose Ordered Sig/Alonzo Route Start Time Stop Time Status Last Admin Dose Admin Acetaminophen 325 mg Q4HP PRN PO 01/15/24 21:15 01/16/24 00:39 325 MG Acetaminophen/ Hydrocodone Bitart 1 tab Q4HP PRN PO 01/15/24 21:15 Ondansetron HCl 4 mg Q4HP PRN IV 01/15/24 21:15 Zinc Sulfate 220 mg DAILY PO 01/16/24 10:00 01/16/24 10:14 220 MG Ascorbic Acid 500 mg BID PO 01/15/24 22:00 01/16/24 20:34 500 MG Multivitamins 1 tab DAILY PO 01/16/24 10:00 01/16/24 10:14 1 TAB Morphine Sulfate 2 mg Q4HPRN PRN IV 01/15/24 21:15 Nitroglycerin 0.4 mg Q5MINP PRN SL 01/15/24 21:15 Morphine Sulfate 2 mg Q30M PRN IV 01/15/24 21:15 Rivaroxaban 15 mg QPM PO 01/16/24 18:00 01/16/24 17:41 15 MG Pantoprazole Sodium 40 mg DAILY@0600 PO 01/17/24 06:00 01/17/24 06:09 40 MG Doxycycline Hyclate 250 ml @ 125 mls/hr Q12H IV 01/16/24 13:30 01/17/24 01:38 125 MLS/HR laboratory and microbiology Laboratory Tests 01/16/24 10:25 01/16/24 05:09 Test 01/16/24 05:09 Range/Units Serum Glucose 109 H 74-106 mg/dL Assessment/Plan Patient is a 88-year-old gentleman who presented with left lower extremity redness and swelling. Cardiology is involved for cardiac aspects of care. Patient is known to our practice from outside on before. Does have history of old DVT on the left lower extremity and is usually on Xarelto as outpatient. Has been diagnosed with persistent AFib and is kept on Xarelto. Does have a Biotronik pacemaker which was interrogated in the office around 1 month ago. Denies chest pains/shortness of breath/palpitations/loss of consciousness. Not in acute distress. Lying flat in the bed. No JVD. Mucosa is pink and wet. No carotid bruit. Lungs are clear to auscultation. Not using accessory muscles of breathing. Cardiac: Regular, no thrill/gallop. Abdomen is soft. Bowel sound is positive. There is no gross mass/hepatomegaly. Extremities reveal 2+ edema in the right side and 3+ in the left side. Dorsalis pedis is 1+ bilateral. 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 Echocardiogram of May 2023 (performed in the office) had revealed preserved left ventricular systolic function, dilated aortic root, biatrial enlargement and no specific valvular disease Left heart catheterization of May 2022 had reported nonobstructive coronary artery disease, LVEF of 60% and LVEDP of 18 mm Hg WBC: 12.5 - 11.0 Hemoglobin: 13.1 - 11.8 ESR: 72 Creatinine: 1.16 - 1.27 Potassium: 4.7 - 4.4 D-dimer: 2.11 CT of the left lower extremities reported: 1. Moderate to marked subcutaneous edema throughout the left lower leg, may be seen with cellulitis in the appropriate clinical setting. No organized fluid collection to suggest abscess. 2. No bony destructive changes are seen to suggest osteomyelitis. Correlate with clinical findings Chest xry revealed: IMPRESSION: Patchy left lung airspace opacities. Venous duplex of lower ext revealed: Impression: 1. No right or left femoropopliteal venous thrombosis. Telemetry reveals atrial fibrillation with moderate ventricular response Echo revealed: Left ventricle: Left ventricle is normal size. Mild concentric left ventricle hypertrophy was seen. EF was 45-50%. Mild diffuse hypokinesis of left ventricle was seen. Right ventricle was mildly dilated with normal systolic function. Both atria were mildly dilated. Aortic valve: Aortic valve was trileaflet. Aortic sclerosis with no stenosis was seen. There was no aortic insufficiency. There was mild mitral/tricuspid regurgitation. Pulmonary valve was not well visualized. Mild pulmonary valve insufficiency was seen. Right ventricular systolic pressure was assess stone 48 mm Hg. There was no pericardial effusion. Aortic root was dilated at 4.2 cm. Patient is a 88-year-old gentleman who presented with left lower extremities redness and swelling. Does have history of DVT on the same leg. Presentation questions cellulitis. Does have history of atrial fibrillation also. Is on Xarelto as outpatient. Cellulitis of left lower extremities Sepsis Chronic DVT of left lower extremities Atrial fibrillation Status post pacemaker (Biotronik) implantation for tachy-wilton syndrome History of obesity Old history of aortic aneurysm Cardiac suggestion for management: Manage on telemetry Follow-up electrolytes and kidney function tests and correct abnormalities. Keep potassium above 4 and magnesium above 2 EKG Antibiotics as per primary team Continue long-term anticoagulation (Xarelto) Further evaluation and management depends on the above and clinical course A total of 55 minutes was spent reviewing the patient record, examining the patient, making a diagnostic and therapeutic plan, discussing this plan with medical personnel, following up on diagnostic studies and following the patient for clinical stability excluding any and all procedures. At least 50% of this time was spent in direct, [id number] contact. Thank you for allowing me to participate in this patient's care. Further recommendations will depend on patient's clinical course. Please do not hesitate to contact me if you have any questions or concerns. This medical document was created using electronic medical record system with [employer] dictation system. Although this document has been carefully reviewed, there may still be some phonetic and typographical errors. These areas are purely typographical due to the imperfection of the software programs, and do not reflect any compromise in the patient's medical care. Dietary Evaluation Review Comments: 1) Consider TAD 1 pkt BID for wound. 2) Continue current plan of care Expected Outcomes/Goals: F/U in 3-5 days Plan discussed with: Patient, Other (nurse) MARY LEACH MD Jan 17, 2024 08:44
--- NOTE | 2024-01-17 09:02 | DVHSR ---
APPROVED REPORT EXAM: Two-dimensional and M-mode echocardiogram with Doppler and color Doppler. Blood Pressure: 102/56 mmHg INDICATION Atrial Fibrillation Surgery/Intervention Pacemaker: RISK FACTORS Obesity: Height: 5'7", Weight: 222 DIMENSIONS LVDd4.8 (3.8-5.7cm)LA (2D)5.1 (1.9-4.0cm)Aortic Root4.2 (2.0-3.7cm) LVDs4.0 (2.5-4.0cm)LA (MM) (1.9-4.0cm)Aortic Cusp Exc1.9 (1.5-2.0cm) EF (%) 35.0 (55-70%)Rt. Atrium5.2 (1.9-4.0cm)Asc. Aorta cm IVSd1.2 (0.7-1.1cm)RV (D)4.9 (1.8-2.4cm) PWd1.2 (0.7-1.1cm) Mitral Valve MitralMitral Stenosis E wave0.65m/sMV Mean GR.mmHg E/A ratio0.02D MVAcm2 Aortic Valve Aortic ValveAortic Stenosis V10.82m/Cydney Mean GR.4mmHg V21.26m/Cydney Peak GR.6mmHg LVOT Diameter2.4 (1.8-2.4cm)Doppler AVA2.94cm2 Pulmonic Valve V20.84m/s Tricuspid Valve TR Velocity3.15m/s [id number] Other Information Quality : LimitedRhythm : Technically limited study due to body habitus. Conclusion Left ventricle: Left ventricle is normal size. Mild concentric left ventricle hypertrophy was seen. EF was 45-50%. Mild diffuse hypokinesis of left ventricle was seen. Right ventricle was mildly dilated with normal systolic function. Both atria were mildly dilated. Aortic valve: Aortic valve was trileaflet. Aortic sclerosis with no stenosis was seen. There was no aortic insufficiency. There was mild mitral/tricuspid regurgitation. Pulmonary valve was not well visualized. Mild pulmonary valve insufficiency was seen. Right ventricular systolic pressure was assess stone 48 mm Hg. There was no pericardial effusion. A ortic root was dilated at 4.2 cm.
--- NOTE | 2024-01-17 10:08 | DVHPN2 ---
Progress Note - Dictate Date Seen: Jan 17, 2024 Medical Necessity Reason Pt with a Central, PICC or Fol: No vital signs Vital Sign Date Time Temp Pulse Resp B/P (MAP) Pulse Ox O2 Delivery O2 Flow Rate FiO2 01/17/24 07:59 18 98 Nasal Cannula* 2 28 01/17/24 05:00 97.8 64 94/53 (67) 97.8 Total Intake and Output 01/16/24 01/16/24 01/17/24 15:00 23:00 07:00 Intake Total 700 ml 1150 ml Output Total 350 ml Balance 700 ml 800 ml medications Current Medications Medications Dose Ordered Sig/Alonzo Route Start Time Stop Time Status Last Admin Dose Admin Acetaminophen 325 mg Q4HP PRN PO 01/15/24 21:15 01/16/24 00:39 325 MG Acetaminophen/ Hydrocodone Bitart 1 tab Q4HP PRN PO 01/15/24 21:15 Ondansetron HCl 4 mg Q4HP PRN IV 01/15/24 21:15 Zinc Sulfate 220 mg DAILY PO 01/16/24 10:00 01/17/24 09:28 220 MG Ascorbic Acid 500 mg BID PO 01/15/24 22:00 01/17/24 09:28 500 MG Multivitamins 1 tab DAILY PO 01/16/24 10:00 01/17/24 09:28 1 TAB Morphine Sulfate 2 mg Q4HPRN PRN IV 01/15/24 21:15 Nitroglycerin 0.4 mg Q5MINP PRN SL 01/15/24 21:15 Morphine Sulfate 2 mg Q30M PRN IV 01/15/24 21:15 Rivaroxaban 15 mg QPM PO 01/16/24 18:00 01/16/24 17:41 15 MG Pantoprazole Sodium 40 mg DAILY@0600 PO 01/17/24 06:00 01/17/24 06:09 40 MG Doxycycline Hyclate 250 ml @ 125 mls/hr Q12H IV 01/16/24 13:30 01/17/24 01:38 125 MLS/HR objective General Appearance: alert, no distress HEENT: EOMI, PERRLA, normal external inspect of ears, no icterus, no nasal drainage Neck: no carotid bruit, no jugular venous distention (JVD), no lymphadenopathy Chest: normal thorax Respiratory: clear to auscultation, normal air movement Cardiovascular: regular rate and rhythm, no diastolic murmur, no jugular venous distention (JVD), no rub, no systolic murmur Abdominal: soft, no hepatomegaly, no mass, no splenomegaly, no tenderness Genitourinary: grossly normal external Musculoskeletal: no joint tenderness, no swelling Extremities: normal pulses, no calf tenderness, no clubbing, no cyanosis, no edema Skin: no bruising, no jaundice, no rash Neurological: alert, No focal deficit laboratory and microbiology Laboratory Tests 01/16/24 10:25 01/16/24 05:09 Test 01/16/24 05:09 Range/Units Serum Glucose 109 H 74-106 mg/dL Problem List 1. Left leg cellulitis Monitor, daily labs 2. Chronic anticoagulation (with Xarelto) Monitor, resume home Xarelto 3. Persistent Atrial fibrillation Monitor EKG, cardiology consult 4. Obesity Monitor, PPI 5. S/p pacemaker Biotronik Monitor, cardiology consult 6. History of DVT to left lower extremity Monitor, US doppler BLE 7. Sepsis Monitor, IV antibiotics, daily labs Assessment/Plan Subjective Patient is awake and alert. Objective Patient's WBC count is improving. Patient apparently complained of cramping with Doxycycline and he refused further doses. He was then started on Levaquin. Patient was admitted for left lower extremity pain and swelling. He was found to have cellulitis. 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 Patient was seen by wound care and dressing change was done. Patient had a T temp of 100.1. Patient's leg is negative for DVT. Plan Continue current treatment. Change antibiotics to Levaquin. Continue wound care. Possible DC planning for tomorrow. Dietary Evaluation Review Comments: 1) Consider TAD 1 pkt BID for wound. 2) Continue current plan of care Expected Outcomes/Goals: F/U in 3-5 days Plan discussed with: Patient, Other LEVON LECHUGA NP Jan 17, 2024 10:08
[2024-01-17] MEDS: levoFLOXacin 500MG 100 ML IV SCH (16:14)
[2024-01-18] VITALS (7 sets, daily range): BP systolic 95–137; BP diastolic 40–67; PULSE 61–100; RESP 18–19; TEMP 97.9–98.6; O2SAT 90–96
--- NOTE | 2024-01-18 07:10 | DVHPN2 ---
Progress Note - Dictate Date Seen: Jan 18, 2024 Medical Necessity Reason Pt with a Central, PICC or Fol: No vital signs Vital Sign Date Time Temp Pulse Resp B/P (MAP) Pulse Ox O2 Delivery O2 Flow Rate FiO2 01/18/24 05:00 97.9 61 18 113/64 (80) 92 97.9 01/17/24 20:00 Nasal Cannula* 2 28 Total Intake and Output 01/17/24 01/17/24 01/18/24 15:00 23:00 07:00 Intake Total 150 ml 275 ml Output Total 450 ml 300 ml Balance -300 ml -25 ml medications Current Medications Medications Dose Ordered Sig/Alonzo Route Start Time Stop Time Status Last Admin Dose Admin Acetaminophen 325 mg Q4HP PRN PO 01/15/24 21:15 01/16/24 00:39 325 MG Acetaminophen/ Hydrocodone Bitart 1 tab Q4HP PRN PO 01/15/24 21:15 Ondansetron HCl 4 mg Q4HP PRN IV 01/15/24 21:15 Zinc Sulfate 220 mg DAILY PO 01/16/24 10:00 01/17/24 09:28 220 MG Ascorbic Acid 500 mg BID PO 01/15/24 22:00 01/17/24 20:23 500 MG Multivitamins 1 tab DAILY PO 01/16/24 10:00 01/17/24 09:28 1 TAB Morphine Sulfate 2 mg Q4HPRN PRN IV 01/15/24 21:15 Nitroglycerin 0.4 mg Q5MINP PRN SL 01/15/24 21:15 Morphine Sulfate 2 mg Q30M PRN IV 01/15/24 21:15 Rivaroxaban 15 mg QPM PO 01/16/24 18:00 01/17/24 18:24 15 MG Pantoprazole Sodium 40 mg DAILY@0600 PO 01/17/24 06:00 01/18/24 06:12 40 MG Levofloxacin 50 ml @ 50 mls/hr DAILY IV 01/18/24 10:00 laboratory and microbiology Laboratory Tests 01/16/24 10:25 01/16/24 05:09 Test 01/16/24 05:09 Range/Units Serum Glucose 109 H 74-106 mg/dL Assessment/Plan Patient is a 88-year-old gentleman who presented with left lower extremity redness and swelling. Cardiology is involved for cardiac aspects of care. Patient is known to our practice from outside and before. Does have history of old DVT on the left lower extremity and is usually on Xarelto as outpatient. Has been diagnosed with persistent AFib and is kept on Xarelto. Does have a Biotronik pacemaker which was interrogated in the office around 1 month before presentation. Denies chest pains/shortness of breath/palpitations/loss of consciousness. Not in acute distress. Lying flat in the bed. No JVD. Mucosa is pink and wet. No carotid bruit. Lungs are clear to auscultation. Not using accessory muscles of breathing. Cardiac: Regular, no thrill/gallop. Abdomen is soft. Bowel sound is positive. There is no gross mass/hepatomegaly. Extremities reveal 2+ edema in the right side and 3+ in the left side. Dorsalis pedis is 1+ bilateral. 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 Echocardiogram of May 2023 (performed in the office) had revealed preserved left ventricular systolic function, dilated aortic root, biatrial enlargement and no specific valvular disease Left heart catheterization of May 2022 had reported nonobstructive coronary artery disease, LVEF of 60% and LVEDP of 18 mm Hg WBC: 12.5 - 11.0 Hemoglobin: 13.1 - 11.8 ESR: 72 Creatinine: 1.16 - 1.27 Potassium: 4.7 - 4.4 D-dimer: 2.11 CT of the left lower extremities reported: 1. Moderate to marked subcutaneous edema throughout the left lower leg, may be seen with cellulitis in the appropriate clinical setting. No organized fluid collection to suggest abscess. 2. No bony destructive changes are seen to suggest osteomyelitis. Correlate with clinical findings Chest xry revealed: IMPRESSION: Patchy left lung airspace opacities. Venous duplex of lower ext revealed: Impression: 1. No right or left femoropopliteal venous thrombosis. EKG reveals a-fib baseline and paced ventricle Telemetry reveals atrial fibrillation with moderate ventricular response Echo revealed: Left ventricle: Left ventricle is normal size. Mild concentric left ventricle hypertrophy was seen. EF was 45-50%. Mild diffuse hypokinesis of left ventricle was seen. Right ventricle was mildly dilated with normal systolic function. Both atria were mildly dilated. Aortic valve: Aortic valve was trileaflet. Aortic sclerosis with no stenosis was seen. There was no aortic insufficiency. There was mild mitral/tricuspid regurgitation. Pulmonary valve was not well visualized. Mild pulmonary valve insufficiency was seen. Right ventricular systolic pressure was assess stone 48 mm Hg. There was no pericardial effusion. Aortic root was dilated at 4.2 cm. Patient is a 88-year-old gentleman who presented with left lower extremities redness and swelling. Does have history of DVT on the same leg. Presentation questions cellulitis. Does have history of atrial fibrillation also. Is on Xarelto as outpatient. Cellulitis of left lower extremities Sepsis Chronic DVT of left lower extremities Atrial fibrillation Status post pacemaker (Biotronik) implantation for tachy-wilton syndrome History of obesity Old history of aortic aneurysm Cardiac suggestion for management: Manage on telemetry Follow-up electrolytes and kidney function tests and correct abnormalities. Keep potassium above 4 and magnesium above 2 Antibiotics as per primary team Continue long-term anticoagulation (Xarelto) Cardiac whalen, stable Further evaluation and management depends on the above and clinical course A total of 55 minutes was spent reviewing the patient record, examining the patient, making a diagnostic and therapeutic plan, discussing this plan with medical personnel, following up on diagnostic studies and following the patient for clinical stability excluding any and all procedures. At least 50% of this time was spent in direct, [id number] contact. Thank you for allowing me to participate in this patient's care. Further recommendations will depend on patient's clinical course. Please do not hesitate to contact me if you have any questions or concerns. This medical document was created using electronic medical record system with [employer] computerized dictation system. Although this document has been carefully reviewed, there may still be some phonetic and typographical errors. These areas are purely typographical due to the imperfection of the software programs, and do not reflect any compromise in the patient's medical care. Dietary Evaluation Review Comments: 1) Consider TAD 1 pkt BID for wound. 2) Continue current plan of care Expected Outcomes/Goals: F/U in 3-5 days Plan discussed with: Patient, Other (nurse) MARY LEACH MD Jan 18, 2024 07:10
[2024-01-18] MEDS: levoFLOXacin 250MG 50 ML IV SCH (10:30)
[2024-01-18] MEDS: HYDROcodone-ACET 5/325MG TAB PO PRN (10:48)
[2024-01-18] MEDS ORDERED: RIV15T PO (11:11)
[2024-01-18] MEDS ORDERED: LEVO500T91 PO (11:13)
--- NOTE | 2024-01-18 11:14 | DVHDS2 ---
Discharge Summary Date of Admission Jan 15, 2024 at 21:07 Date of Discharge: Jan 18, 2024 Labs/Diagnostic Data: Laboratory Results Test 01/16/24 10:25 01/16/24 05:09 01/15/24 14:02 01/15/24 13:16 White Blood Count 11.0 10^3/uL (4.4-10.8) Red Blood Count 3.69 10^6/uL (4.5-5.90) Hemoglobin 11.8 g/dL (13.5-17.5) Hematocrit 35.4 % (41.0-53.0) Mean Corpuscular Volume 95.9 fL (80.0-100.0) Mean Corpuscular Hemoglobin 31.9 pg (28.0-32.0) Mean Corpuscular Hemoglobin Concent 33.2 g/dL (32.0-36.0) Red Cell Distribution Width 13.8 % (11.8-14.3) Platelet Count 191 10^3/uL (140-450) Mean Platelet Volume 8.6 fL (6.9-10.8) Neutrophils (%) (Auto) 80.5 % (37.0-80.0) Lymphocytes (%) (Auto) 6.2 % (10.0-50.0) Monocytes (%) (Auto) 11.9 % (0.0-12.0) Eosinophils (%) (Auto) 1.0 % (0.0-7.0) Basophils (%) (Auto) 0.4 % (0.0-2.0) Neutrophils # (Auto) 8.9 10 ^3/uL (1.6-8.6) Lymphocytes # (Auto) 0.7 10 ^3/uL (0.4-5.4) Monocytes # (Auto) 1.3 10 ^3/uL (0-1.3) Eosinophils # (Auto) 0.1 10 ^3/uL (0-0.8) Basophils # (Auto) 0 10 ^3/uL (0-0.2) Nucleated Red Blood Cells 0.1 % D-Dimer, Quantitative 2.11 mg/L FEU (0.0-0.49) Sodium Level 136 mmol/L (136-145) Potassium Level 4.4 mmol/L (3.5-5.1) Chloride Level 102 mmol/L (98-107) Carbon Dioxide Level 27 mmol/L (20-31) Anion Gap 7 (5-15) Blood Urea Nitrogen 25 mg/dL (9-23) Creatinine 1.27 mg/dL (0.700-1.30) Glomerular Filtration Rate Calc 54 mL/min (>90) BUN/Creatinine Ratio 19.7 (10.0-20.0) Serum Glucose 109 mg/dL (74-106) Calcium Level 8.7 mg/dL (8.7-10.4) Total Bilirubin 0.6 mg/dL (0.2-1.0) Aspartate Amino Transferase (AST) 15 U/L (13-40) Alanine Aminotransferase (ALT) 12 U/L (7-40) Alkaline Phosphatase 66 U/L (46-116) Total Protein 6.2 g/dL (5.7-8.2) Albumin 3.3 g/dL (3.2-4.8) Erythrocyte Sedimentation Rate 72 mm/hr (0-20) POC Glucose 110 mg/dl (70-106) Other Laboratory Tests 01/16/24 10:25 01/16/24 05:09 Brief Hx & Hospital Course: Mr. Maris Stone is an 88-year-old gentleman with a significant past medical history of atrial fibrillation, persistent status post pacemaker, and hyperlipidemia. He presents to the hospital with a chief complaint of left lower extremity leg swelling and redness, which he has been experiencing for the past 3 days. The patient denies any recent trauma to the affected extremity. In addition to the leg swelling and redness, Mr. Stone reports having a fever, chills, nausea, vomiting, diarrhea, shortness of breath, and chest pain. He has a history of pacemaker implantation and cataract surgery. The patient's symptoms began 3 days ago, and he is now being admitted to the hospital for further evaluation and treatment of suspected left lower extremity cellulitis. Patient was admitted for cellulitis and pain in his left lower extremity. He refused doxycycline, stating it caused cramping. Patient's IV went bad last night, and he refused a replacement. He is cardiac stable and cleared for discharge. Patient was discharged on Levaquin for seven days and instructed to follow up with PCP, Dr. Mcgee, in one week. The patient received proper medical treatment and medications. Vital signs, Imaging and Laboratory Work was monitored. All consults recommendations were followed as provided. There were no complaints or new complaints upon discharge, all questions and concerns were answered. Patient was advised to return to the ER or call 911 if any headaches, dizziness, shortness of breath, chest pain, bleeding, fevers, or worsening of medical condition. Patient/Family was counseled about treatment plan, medications, possible side effects, patientverbalized understanding. All questions were answered to the best of my ability. The patient symptoms improved and they are okay to be DC. Condition at Discharge: Good Final Diagnosis/Problems List cellulitis lle Discharge Disposition: Home with Health Services Discharge Instruct/Medications Diet: Cardiac 2g Na,low cholest Activity: No Restrictions, As Tolerated Follow Up/Referral: pcp 1 week Discharge Statement: "Patient was advised to return to the ER or call 911 if any headaches, dizziness, shortness of breath, chest pain, abdominal pain, bleeding, fevers, or worsening of medical condition. Patient was counseled about treatment plan, medications, possible side effects, patientverbalized understanding. All questions were answered to the best of my ability. This discharge took greater then 30 minutes in planning, reviewing documentation, counseling the patient, and discussing with other team members." ASSESSMENT ASSESSMENT Assessment cellulitis lle LEVON LECHUGA NP Jan 18, 2024 11:14
[2024-01-19 01:00] VITALS: BP 104/36; PULSE 65; RESP 18; TEMP 98.3; O2SAT 90
[2024-01-19 05:00] VITALS: BP 124/56; PULSE 72; RESP 19; TEMP 98.3; O2SAT 91
--- NOTE | 2024-01-19 07:32 | DVHPN2 ---
Progress Note - Dictate Date Seen: Jan 19, 2024 Medical Necessity Reason Pt with a Central, PICC or Fol: No vital signs Vital Sign Date Time Temp Pulse Resp B/P (MAP) Pulse Ox O2 Delivery O2 Flow Rate FiO2 01/19/24 05:00 98.3 72 19 124/56 (78) 91 98.3 01/18/24 20:00 Nasal Cannula* 2 28 Total Intake and Output 01/18/24 01/18/24 01/19/24 15:00 23:00 07:00 Intake Total 50 ml 860 ml 600 ml Balance 50 ml 860 ml 600 ml medications Current Medications Medications Dose Ordered Sig/Alonzo Route Start Time Stop Time Status Last Admin Dose Admin Acetaminophen 325 mg Q4HP PRN PO 01/15/24 21:15 01/16/24 00:39 325 MG Acetaminophen/ Hydrocodone Bitart 1 tab Q4HP PRN PO 01/15/24 21:15 01/18/24 10:48 1 TAB Ondansetron HCl 4 mg Q4HP PRN IV 01/15/24 21:15 Zinc Sulfate 220 mg DAILY PO 01/16/24 10:00 01/18/24 10:31 220 MG Ascorbic Acid 500 mg BID PO 01/15/24 22:00 01/18/24 21:31 500 MG Multivitamins 1 tab DAILY PO 01/16/24 10:00 01/18/24 10:31 1 TAB Morphine Sulfate 2 mg Q4HPRN PRN IV 01/15/24 21:15 Nitroglycerin 0.4 mg Q5MINP PRN SL 01/15/24 21:15 Morphine Sulfate 2 mg Q30M PRN IV 01/15/24 21:15 Rivaroxaban 15 mg QPM PO 01/16/24 18:00 01/18/24 18:04 15 MG Pantoprazole Sodium 40 mg DAILY@0600 PO 01/17/24 06:00 01/19/24 06:00 40 MG Levofloxacin 50 ml @ 50 mls/hr DAILY IV 01/18/24 10:00 01/18/24 10:30 50 MLS/HR laboratory and microbiology Laboratory Tests 01/16/24 10:25 01/16/24 05:09 Test 01/16/24 05:09 Range/Units Serum Glucose 109 H 74-106 mg/dL Assessment/Plan Patient is a 88-year-old gentleman who presented with left lower extremity redness and swelling. Cardiology is involved for cardiac aspects of care. Patient is known to our practice from outside and before. Does have history of old DVT on the left lower extremity and is usually on Xarelto as outpatient. Has been diagnosed with persistent AFib and is kept on Xarelto. Does have a Biotronik pacemaker which was interrogated in the office around 1 month before presentation. Denies chest pains/shortness of breath/palpitations/loss of consciousness. Not in acute distress. Lying flat in the bed. No JVD. Mucosa is pink and wet. No carotid bruit. Lungs are clear to auscultation. Not using accessory muscles of breathing. Cardiac: Regular, no thrill/gallop. Abdomen is soft. Bowel sound is positive. There is no gross mass/hepatomegaly. Extremities reveal 2+ edema in the right side and 3+ in the left side. Dorsalis pedis is 1+ bilateral. 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 Echocardiogram of May 2023 (performed in the office) had revealed preserved left ventricular systolic function, dilated aortic root, biatrial enlargement and no specific valvular disease Left heart catheterization of May 2022 had reported nonobstructive coronary artery disease, LVEF of 60% and LVEDP of 18 mm Hg WBC: 12.5 - 11.0 Hemoglobin: 13.1 - 11.8 ESR: 72 Creatinine: 1.16 - 1.27 Potassium: 4.7 - 4.4 D-dimer: 2.11 CT of the left lower extremities reported: 1. Moderate to marked subcutaneous edema throughout the left lower leg, may be seen with cellulitis in the appropriate clinical setting. No organized fluid collection to suggest abscess. 2. No bony destructive changes are seen to suggest osteomyelitis. Correlate with clinical findings Chest xry revealed: IMPRESSION: Patchy left lung airspace opacities. Venous duplex of lower ext revealed: Impression: 1. No right or left femoropopliteal venous thrombosis. EKG reveals a-fib baseline and paced ventricle Telemetry reveals atrial fibrillation with moderate ventricular response Echo revealed: Left ventricle: Left ventricle is normal size. Mild concentric left ventricle hypertrophy was seen. EF was 45-50%. Mild diffuse hypokinesis of left ventricle was seen. Right ventricle was mildly dilated with normal systolic function. Both atria were mildly dilated. Aortic valve: Aortic valve was trileaflet. Aortic sclerosis with no stenosis was seen. There was no aortic insufficiency. There was mild mitral/tricuspid regurgitation. Pulmonary valve was not well visualized. Mild pulmonary valve insufficiency was seen. Right ventricular systolic pressure was assess stone 48 mm Hg. There was no pericardial effusion. Aortic root was dilated at 4.2 cm. Patient is a 88-year-old gentleman who presented with left lower extremities redness and swelling. Does have history of DVT on the same leg. Presentation questions cellulitis. Does have history of atrial fibrillation also. Is on Xarelto as outpatient. Cellulitis of left lower extremities Sepsis Chronic DVT of left lower extremities Atrial fibrillation Status post pacemaker (Biotronik) implantation for tachy-wilton syndrome History of obesity Old history of aortic aneurysm Cardiac suggestion for management: Manage on telemetry Follow-up electrolytes and kidney function tests and correct abnormalities. Keep potassium above 4 and magnesium above 2 Antibiotics as per primary team Continue long-term anticoagulation (Xarelto) Cardiac whalen, stable Further evaluation and management depends on the above and clinical course A total of 55 minutes was spent reviewing the patient record, examining the patient, making a diagnostic and therapeutic plan, discussing this plan with medical personnel, following up on diagnostic studies and following the patient for clinical stability excluding any and all procedures. At least 50% of this time was spent in direct, [id number] contact. Thank you for allowing me to participate in this patient's care. Further recommendations will depend on patient's clinical course. Please do not hesitate to contact me if you have any questions or concerns. This medical document was created using electronic medical record system with [employer] computerized dictation system. Although this document has been carefully reviewed, there may still be some phonetic and typographical errors. These areas are purely typographical due to the imperfection of the software programs, and do not reflect any compromise in the patient's medical care. Dietary Evaluation Review Comments: 1) Consider TAD 1 pkt BID for wound. 2) Continue current plan of care Expected Outcomes/Goals: F/U in 3-5 days Plan discussed with: Patient, Other (nurse) MARY LEACH MD 21, 2024 07:32
[2024-01-19 07:50] VITALS: PULSE 66; RESP 18; O2SAT 94
[2024-01-19 09:00] VITALS: BP 93/51; PULSE 75; RESP 18; TEMP 99.5; O2SAT 94
--- NOTE | 2024-01-29 09:38 | ECG ---
[facility] Test Date: 2024-01-18 Test Time: 02:39:49 Pat Name: BERNICE GARCIA Department: Respiratoy Room: 0251T A Gender: M Veterinary Technologist: MARK : 1935 Requested By: MARY LEACH Order Number: [id number] Reading MD: Alessandra Patterson Measurements Intervals [place] Rate: 70 P: 0 GA: 0 QRS: 49 QRSD: 113 T: -10 QT: 342 QTc: 369 Interpretive Statements Afib/flut and V-paced complexes No further rhythm analysis attempted due to paced rhythm Borderline intraventricular conduction delay Low voltage, extremity leads Nonspecific T abnrm, anterolateral leads Baseline wander in lead(s) V4 Electronically Signed On 01-30-2024 9:08:02 PST by Alessandra Patterson Please click the below link to view image of tracing.
== END 2024-01-19 10:00 | disposition home health service (06) | DRG 603 ==
LOC: ER 12:25 → TELE 21:07 → TELE-EAST 21:12
PROVIDERS: ADMIT Internal Medicine; ATTEND Nurse Practitioner
DX: L03.116 Cellulitis of left lower limb (principal); R65.10 Systemic inflammatory response syndrome (SIRS) of non-infectious origin without acute organ dysfunction; I50.22 Chronic systolic (congestive) heart failure; L97.929 Non-pressure chronic ulcer of unspecified part of left lower leg with unspecified severity; I48.19 Other persistent atrial fibrillation; E66.9 Obesity, unspecified; I50.9 Heart failure, unspecified; I49.5 Sick sinus syndrome; E78.5 Hyperlipidemia, unspecified; R70.0 Elevated erythrocyte sedimentation rate; I08.1 Rheumatic disorders of both mitral and tricuspid valves; M41.9 Scoliosis, unspecified; I37.1 Nonrheumatic pulmonary valve insufficiency; I11.0 Hypertensive heart disease with heart failure; Z95.0 Presence of cardiac pacemaker; Z87.891 Personal history of nicotine dependence; Z86.79 Personal history of other diseases of the circulatory system; Z86.718 Personal history of other venous thrombosis and embolism; Z79.01 Long term (current) use of anticoagulants; Z79.899 Other long term (current) drug therapy; Z68.35 Body mass index [BMI] 35.0-35.9, adult
CPT/HCPCS: 36415; 71045; 73700; 80048; 80053; 82962; 85025; 85379; 85652; 87040; 93005; 93306; 93970; 97110; 97116; 97163; G0378; J1956; J2405; J3490